=== PATIENT | female | born 1985 | race Two or more races ===

== ENCOUNTER → 2024-04-28 | Outpatient (CLI) | payer BC, MEDICAID, SELFPAY ==
--- NOTE | 2024-04-28 14:00 | XR_ITS ---
Examination: Breast ultrasound, unilateral, left Date and time of exam: April 28, 2024 1458 hrs. Indications: Mammogram February 07, 2024 13 mm nodule retroareolar region left breast, history bilateral breast implants Technique: Real-time candelario scale ultrasonographic imaging performed left breast including all 4 quadrants as well as nipple retroareolar and axillary region. Findings: No cystic or solid mass Impression: BI-RADS Category 1: Negative study
--- NOTE | 2024-04-28 14:30 | XR_ITS ---
Examination: Diagnostic digital mammography, unilateral, LEFT Computer aided detection 3-D breast Tomosynthesis, unilateral Date and time of exam: April 18, 2024 1454 hrs. Indications: Mammogram February 07, 2024 13 mm circumscribed nodule retroareolar region left breast Technique: Nonmagnified MLO, CC views of the left breast have been obtained, reconstructed from 3-D Tomosynthesis images. R2 computer aided detection program utilized for evaluation of suspicious masses and/or abnormal calcifications. 3-D Tomosynthesis images obtained. Findings: The breast is heterogeneously dense, which may obscure small masses No discrete retroareolar mass is depicted Impression: BI-RADS category 2: Benign findings Return to yearly follow-up mammography
== END | disposition home or self-care (01) ==
LOC: CDIM 14:48
PROVIDERS: Referring Provider Physician Assistant; Visit Provider Physician Assistant
DX: R92.322 Mammographic fibroglandular density, left breast (principal)
CPT/HCPCS: 76641; 77061; 77065; G0279